=== PATIENT | male | born 1950 | race Caucasian/White ===

== ENCOUNTER → 2016-05-25 | Outpatient (CLI) | payer BC | LOC: MW.CHUR 08:56 | PROVIDERS: ATTEND Urology | DX: R97.20 Elevated prostate specific antigen [PSA] (principal); N42.9 Disorder of prostate, unspecified | CPT/HCPCS: 36415; 84153 ==

== ENCOUNTER 2016-11-04 08:25 | Day surgery (SDC) | payer BC ==
[~2016-11-04 08:25] MED LIST: Lactated Ringers 1,000 ML IV SCH
--- NOTE | 2016-11-04 08:55 | PCM.PREANE ---
Preanesthetic Assessment - Anesthesia/Transfusion/Family Hx Anesthesia History: Prior Anesthesia Without Reaction Family History of Anesthesia Reaction: No Transfusion History: No Prior Transfusion(s) - Review of Systems General: No Symptoms Cardiovascular: No Symptoms Neurological: No Symptoms Other: Reports: None - Physical Assessment NPO Status Date: 11/03/16 O2 Sat by Pulse Oximetry: 96 Respiratory Rate: 16 Vital Signs: Last Vital Signs Temp 36.3 C 11/04/16 08:34 Pulse 78 11/04/16 08:34 Resp 16 11/04/16 08:34 BP 138/88 11/04/16 08:34 Pulse Ox 96 11/04/16 08:34 Height: 1.78 m Weight: 83.915 kg ASA Class: 2 Mental Status: Alert & Oriented x3 Airway Class: Mallampati = 2 Dentition: Reports: Normal Dentition ROM/Head Extension: Full Lungs: Clear to Auscultation, Normal Respiratory Effort Cardiovascular: Regular Rate, Regular Rhythm - Allergies Allergies/Adverse Reactions: Allergies Allergy/AdvReac Type Severity Reaction Status Date / Time mold Allergy "makes me Uncoded 11/02/16 08:52 sick" - Acknowledgements Anesthesia Type Planned: MAC Pt an Appropriate Candidate for the Planned Anesthesia: Yes Alternatives and Risks of Anesthesia Discussed w Pt/Guardian: Yes Pt/Guardian Understands and Agrees with Anesthesia Plan: Yes Additional Comments: PMH: chronic neck and low back pain, thyroid replacement, anxiety, GERD, BPH. Pt denies RAD. PreAnesthesia Questionnaire Cardiovascular History: Gastrointestinal History: Reports: GERD Other Gastrointestinal History: hx gastric ulcer Genitourinary History: Reports: BPH Musculoskeletal History: Reports: Back Pain, Chronic, Osteoarthritis Psychiatric History: Reports: Anxiety Endocrine/Metabolic History: Reports: Hypothyroidism Hematologic History: Reports: Blood Transfusion(s) Other Hematologic History: was told he had a transfusion at 2 yr of age - Past Surgical History Head Surgeries/Procedures: Reports: None GI Surgical History: Reports: Colonoscopy - SUBSTANCE USE Smoking Status *Q: Former Smoker Days Per Week of Alcohol Use: 7 Number of Drinks Per Day: 1 Total Drinks Per Week: 7 Recreational Drug Use History: No - HOME MEDS Home Medications: Home Meds Cholecalciferol (Vitamin D3) [Vitamin D3] 1,000 units PO DAILY 11/02/16 [History ] Doxazosin Mesylate [Cardura] 4 mg PO BEDTIME 11/02/16 [History] LORazepam 0.5 mg PO BID PRN 11/02/16 [History] Lactobacillus Combination No.4 [Probiotic] 1 tab PO DAILY 11/02/16 [History] Levothyroxine Sodium [Synthroid] 100 mcg PO BEDTIME 11/02/16 [History] Lutein 20 mg PO ASDIRECTED 11/02/16 [History] Lysine HCl [l-Lysine] 1 tab PO ASDIRECTED 11/02/16 [History] Multivit-Min/FA/Lycopene/Lut [Centrum Silver Tablet] 1 tab PO DAILY 11/02/16 [ History] Naproxen Sodium [Aleve] 2 - 3 tab PO ASDIRECTED PRN 11/02/16 [History] Omeprazole Magnesium [Prilosec Otc] 20 mg PO DAILY PRN 11/02/16 [History] Testosterone [Androgel] 2 pump TOP DAILY 11/02/16 [History] - CURRENT (IN HOUSE) MEDS Current Meds: Current Medications Lactated Ringer's (Ringers, Lactated) 1,000 mls @ 125 mls/hr IV ASDIRECTED REPLACED BY [facility] Last Admin: 11/04/16 08:40 Dose: 125 mls/hr
[2016-11-04] MEDS ORDERED: Ondansetron 4 MG/2 ML SDV ONE (09:32)
[2016-11-04] MEDS ORDERED: Propofol 200 MG/20 ML SDV ONE (09:32)
[2016-11-04] MEDS ORDERED: fentaNYL 100 MCG/2 ML SDV ONE (09:33)
[2016-11-04] MEDS ORDERED: Midazolam 1 MG/ML 2 ML SDV ONE (09:33)
--- NOTE | 2016-11-04 10:13 | PCM.OPNOTE ---
- General Post-Op/Procedure Note Date of Surgery/Procedure: 11/04/16 Operative Procedure(s): Colonoscopy Pre Op Diagnosis: Change in bowel habits Post-Op Diagnosis: No evidence of neoplasia Anesthesia Technique: MAC (ASA II) Primary Surgeon: Lenard Dumont Disaster Recovery Consultant: Yisel Marquez Condition: Good Free Text/Narrative:: Dictation [id number] CPT CODE 52020
[2016-11-04] MEDS ORDERED: Lactated Ringers 1,000 ML IV SCH (10:15)
--- NOTE | 2016-11-04 10:42 | PCM.POSTAN ---
POST ANESTHESIA ASSESSMENT - MENTAL STATUS Mental Status: Alert, Oriented - RESPIRATORY Respiratory Status: Respiratory Rate WNL, Airway Patent, O2 Saturation Stable - CARDIOVASCULAR CV Status: Pulse Rate WNL, Blood Pressure Stable - GASTROINTESTINAL GI Status: No Symptoms - POST OP HYDRATION Hydration Status: Adequate & Stable
--- NOTE | 2016-11-04 10:43 | PCM48HPAN ---
Post Anesthesia Note - EVALUATION WITHIN 48HRS OF ANESTHETIC Vital Signs in Normal Range: Yes Patient Participated in Evaluation: Yes Respiratory Function Stable: Yes Airway Patent: Yes Cardiovascular Function Stable: Yes Hydration Status Stable: Yes Pain Control Satisfactory: Yes Nausea and Vomiting Control Satisfactory: Yes Mental Status Recovered: Yes
[2016-11-04 10:44] VITALS: BP 99/72
--- NOTE | 2016-11-04 12:35 | OR ---
SURGEON: Lenard Dumont M.D. DATE OF PROCEDURE: 11/04/2016 OPERATION PERFORMED: Colonoscopy. ANESTHESIA: MAC. ASA CLASSIFICATION: II. PREOPERATIVE DIAGNOSIS: Change in bowel habits. POSTOPERATIVE DIAGNOSIS: No evidence of neoplasia. DESCRIPTION OF PROCEDURE: The patient was taken to the endoscopy room, positioned on the endoscopy table in the left lateral decubitus position. Time-out was called for appropriate identification of patient and procedure. Monitored anesthesia care was provided. The colonoscope was inserted into the rectum and advanced without difficulty to the cecum where the colonoscope was retroflexed to visualize the ascending colon from below. The colonoscope was then straightened and slowly withdrawn. The cecum, ascending colon, hepatic flexure, transverse colon, splenic flexure, descending colon, sigmoid colon, and rectum were very well visualized. No tumors, polyps, diverticula, or angiodysplastic changes were noted. The colonoscope was withdrawn to the rectum and retroflexed to visualize the anal orifice from above. No tumors, polyps, or acute hemorrhoidal changes were noted. The colonoscope was then straightened, the rectum aspirated, and the colonoscope removed. The patient tolerated the procedure well and was taken to recovery room in stable condition. JERRELL AUGUSTIN /[id number]
== END 2016-11-04 10:53 | disposition home or self-care (01) ==
LOC: MW.SDS 08:25
PROVIDERS: ATTEND Surgery
DX: R19.4 Change in bowel habit (principal); F41.9 Anxiety disorder, unspecified; K21.9 Gastro-esophageal reflux disease without esophagitis; N40.0 Benign prostatic hyperplasia without lower urinary tract symptoms; E03.9 Hypothyroidism, unspecified; Z91.09 Other allergy status, other than to drugs and biological substances; Z98.890 Other specified postprocedural states; Z87.891 Personal history of nicotine dependence; Z79.899 Other long term (current) drug therapy
CPT/HCPCS: 45378; J2250; J2405; J3010; J7120; 00810; J2704

== ENCOUNTER 2017-01-10 08:20 | Inpatient (IN) | payer BC ==
[2017-01-09 14:13] LABS: CHLORIDE,CL 110 mmol/L (98-110); SODIUM,NA 142 mmol/L (136-146)
[~2017-01-10 08:20] MED LIST changes: +Gentamicin 40 MG/ML 2 ML Vial ONE; -Lactated Ringers 1,000 ML IV SCH; +Lidocaine 2% 5 ML SDV ONE; +Midazolam 1 MG/ML 2 ML SDV ONE; +Neostigmine Methylsulfate 1 MG/ML 5 ML Syringe ONE; +Ondansetron 4 MG/2 ML SDV ONE; +Propofol 200 MG/20 ML SDV ONE; +Sodium Chloride 0.9% 10 ML Syringe FLUSH PRN; +Sodium Chloride 0.9% 2.5 ML Syringe FLUSH PRN; +Sodium Chloride 0.9% 20 ML ONE; +ceFAZolin 1 GM in Premix Bag 1 BAG IV ONE; +fentaNYL 250 MCG/5 ML SDV ONE
[2017-01-10] MEDS: Lactated Ringers 1,000 ML IV SCH ×2 (09:15→23:16)
[2017-01-10] MEDS ORDERED: Morphine PF 10 MG/10 ML SDV ONE (09:23)
--- NOTE | 2017-01-10 09:26 | PCM.PREANE ---
Preanesthetic Assessment - Anesthesia/Transfusion/Family Hx Anesthesia History: Prior Anesthesia Without Reaction Family History of Anesthesia Reaction: No Transfusion History: Prior Transfusion Without Reaction - Review of Systems General: No Symptoms Pulmonary: No Symptoms Cardiovascular: No Symptoms Gastrointestinal: No Symptoms Neurological: No Symptoms Other: Reports: None - Physical Assessment NPO Status Date: 12/19/16 Height: 1.78 m Weight: 84.368 kg ASA Class: 2 Mental Status: Alert & Oriented x3 Airway Class: Mallampati = 2 Dentition: Reports: Normal Dentition ROM/Head Extension: Full Lungs: Clear to Auscultation, Normal Respiratory Effort Cardiovascular: Regular Rate, Regular Rhythm - Lab Values: Laboratory Last Values WBC 6.97 K/uL (4.0-11.0) 01/09/17 13:49 RBC 4.71 M/uL (4.50-5.90) 01/09/17 13:49 Hgb 13.8 g/dL (13.0-17.0) 01/09/17 13:49 Hct 40.6 % (38.0-50.0) 01/09/17 13:49 MCV 86.2 fL (80.0-98.0) 01/09/17 13:49 MCH 29.3 pg (27.0-32.0) 01/09/17 13:49 MCHC 34.0 g/dL (31.0-37.0) 01/09/17 13:49 RDW Std Deviation 44.4 fl (28.0-62.0) 01/09/17 13:49 RDW Coeff of Cecilio 14 % (11.0-15.0) 01/09/17 13:49 Plt Count 271 K/uL (150-400) 01/09/17 13:49 MPV 9.90 fL (7.40-12.00) 01/09/17 13:49 Neut % (Auto) 58.1 % (48.0-80.0) 01/09/17 13:49 Lymph % (Auto) 31.1 % (16.0-40.0) 01/09/17 13:49 [place] % (Auto) 7.5 % (0.0-15.0) 01/09/17 13:49 Eos % (Auto) 2.4 % (0.0-7.0) 01/09/17 13:49 Baso % (Auto) 0.9 % (0.0-1.5) 01/09/17 13:49 Neut # (Auto) 4.1 K/uL (1.4-5.7) 01/09/17 13:49 Lymph # (Auto) 2.2 K/uL (0.6-2.4) 01/09/17 13:49 [place] # (Auto) 0.5 K/uL (0.0-0.8) 01/09/17 13:49 Eos # (Auto) 0.2 K/uL (0.0-0.7) 01/09/17 13:49 Baso # (Auto) 0.1 K/uL (0.0-0.1) 01/09/17 13:49 Nucleated RBC % 0.0 /100WBC 01/09/17 13:49 Nucleated RBCs # 0 K/uL 01/09/17 13:49 Sodium 142 mmol/L (136-146) 01/09/17 13:49 Potassium 3.7 mmol/L (3.5-5.1) 01/09/17 13:49 Chloride 110 mmol/L (98-110) 01/09/17 13:49 Carbon Dioxide 22 mmol/L (21-31) 01/09/17 13:49 BUN 19 mg/dL (6.0-23.0) 01/09/17 13:49 Creatinine 1.1 mg/dL (0.6-1.5) 01/09/17 13:49 Est Cr Clr Drug Dosing 69.13 mL/min 01/09/17 13:49 Estimated GFR (MDRD) > 60.0 ml/min 01/09/17 13:49 Glucose 116 mg/dL (60-110) H 01/09/17 13:49 Calcium 8.8 mg/dL (8.8-10.8) 01/09/17 13:49 Blood Type A POSITIVE 01/09/17 13:49 Antibody Screen NEGATIVE 01/09/17 13:49 Crossmatch See Detail 01/09/17 13:49 - Allergies Allergies/Adverse Reactions: Allergies Allergy/AdvReac Type Severity Reaction Status Date / Time mold Allergy "makes me Uncoded 11/02/16 08:52 sick" - Anesthesia Plan Pre-Op Medication Ordered: None - Acknowledgements Anesthesia Type Planned: General Anesthesia, Spinal (PMH: chronic cough, thyroid replacement, anxiety, gerd, PLAN: GET with intrathecal duramorph for post op pain management.) Pt an Appropriate Candidate for the Planned Anesthesia: Yes Alternatives and Risks of Anesthesia Discussed w Pt/Guardian: Yes Pt/Guardian Understands and Agrees with Anesthesia Plan: Yes PreAnesthesia Questionnaire Cardiovascular History: Reports: None Gastrointestinal History: Reports: GERD Other Gastrointestinal History: hx gastric ulcer Genitourinary History: Reports: BPH Musculoskeletal History: Reports: Back Pain, Chronic, Neck Pain, Chronic, Osteoarthritis Psychiatric History: Reports: Anxiety Endocrine/Metabolic History: Reports: Hypothyroidism Hematologic History: Reports: Blood Transfusion(s) Other Hematologic History: was told he had a transfusion at 2 yr of age - Past Surgical History Head Surgeries/Procedures: Reports: None GI Surgical History: Reports: Colonoscopy - SUBSTANCE USE Smoking Status *Q: Former Smoker Days Per Week of Alcohol Use: 7 Number of Drinks Per Day: 1 Total Drinks Per Week: 7 Recreational Drug Use History: No - HOME MEDS Home Medications: Home Meds Cholecalciferol (Vitamin D3) [Vitamin D3] 1,000 units PO DAILY 11/02/16 [History ] Doxazosin Mesylate [Cardura] 4 mg PO BEDTIME 11/02/16 [History] LORazepam 0.5 mg PO BID PRN 11/02/16 [History] Lactobacillus Combination No.4 [Probiotic] 1 tab PO DAILY 11/02/16 [History] Levothyroxine Sodium [Synthroid] 100 mcg PO BEDTIME 11/02/16 [History] Lutein 20 mg PO ASDIRECTED 11/02/16 [History] Lysine HCl [l-Lysine] 1 tab PO ASDIRECTED 11/02/16 [History] Multivit-Min/FA/Lycopene/Lut [Centrum Silver Tablet] 1 tab PO DAILY 11/02/16 [ History] Naproxen Sodium [Aleve] 2 - 3 tab PO ASDIRECTED PRN 11/02/16 [History] Omeprazole Magnesium [Prilosec Otc] 20 mg PO DAILY PRN 11/02/16 [History] - CURRENT (IN HOUSE) MEDS Current Meds: Current Medications Lactated Ringer's (Ringers, Lactated) 1,000 mls @ 100 mls/hr IV ASDIRECTED BLAKE Sodium Chloride (Saline Flush) 10 ml FLUSH ASDIRECTED PRN PRN Reason: Keep Vein Open Sodium Chloride (Saline Flush) 2.5 ml FLUSH ASDIRECTED PRN PRN Reason: Keep Vein Open Discontinued Medications Fentanyl (Sublimaze) Confirm Administered Dose 250 mcg .ROUTE .STK-MED ONE Stop: 01/10/17 07:11 Gentamicin Sulfate (Gentamicin) Confirm Administered Dose 80 mg .ROUTE .STK-MED ONE Stop: 01/10/17 07:42 Glycopyrrolate () Confirm Administered Dose 1 mg .ROUTE .STK-MED ONE Stop: 01/10/17 07:11 Cefazolin Sodium/Dextrose 1 gm (/ Premix) 50 mls @ 100 mls/hr IV ONCALL ONE Stop: 01/10/17 07:29 Sodium Chloride (Normal Saline) Confirm Administered Dose 20 mls @ as directed .ROUTE .STK-MED ONE Stop: 01/10/17 07:11 Lidocaine (Xylocaine-Mpf 2%) Confirm Administered Dose 5 ml .ROUTE .STK-MED ONE Stop: 01/10/17 07:11 Midazolam HCl (Versed 1 Mg/Ml) Confirm Administered Dose 2 mg .ROUTE .STK-MED ONE Stop: 01/10/17 07:11 Neostigmine Methylsulfate (Neostigmine) Confirm Administered Dose 5 mg .ROUTE .STK-MED ONE Stop: 01/10/17 07:11 Ondansetron HCl (Zofran) Confirm Administered Dose 4 mg .ROUTE .STK-MED ONE Stop: 01/10/17 07:11 Propofol (Diprivan 20 Ml) Confirm Administered Dose 200 mg .ROUTE .STK-MED ONE Stop: 01/10/17 07:11 Vecuronium [place] (Vecuronium) Confirm Administered Dose 10 mg .ROUTE .STK-MED ONE Stop: 01/10/17 07:11
[2017-01-10] MEDS ORDERED: Sodium Chloride 0.9% 20 ML ONE (11:02)
[2017-01-10] MEDS ORDERED: ceFAZolin 1 GM Vial ONE (11:02)
[2017-01-10] MEDS ORDERED: ePHEDrine 50 MG/ML SDV ONE (11:08)
[2017-01-10] MEDS ORDERED: Phenylephrine 1% 10 MG/ML SDV ONE ×3 (11:23→13:36)
[2017-01-10] MEDS ORDERED: HYDROmorphone 2 MG/ML Syringe ONE (13:07)
[2017-01-10] MEDS ORDERED: ceFAZolin 1 GM in Premix Bag 1 BAG IV SCH (14:45)
[2017-01-10] MEDS ORDERED: Albumin 5% 250 ML IV SCH (14:45)
[2017-01-10 17:21] LABS: CHLORIDE,CL 111 mmol/L (98-110); SODIUM,NA 141 mmol/L (136-146)
[2017-01-10] MEDS ORDERED: Morphine PF 30 MG/30 ML PCA Vial IV SCH (18:00)
[2017-01-10] MEDS: ceFAZolin 1 GM in Premix Bag 1 BAG IV SCH (18:43)
[2017-01-10] MEDS: Ondansetron 4 MG/2 ML SDV IVPUSH PRN (18:44)
[2017-01-10] MEDS ORDERED: Albumin 5% 250 ML IV ONE (21:00)
--- NOTE | 2017-01-10 22:03 | OR ---
SURGEON: Luis Angel Carmona M.D. DATE OF PROCEDURE: 01/10/2017 PREOPERATIVE DIAGNOSIS: Adenocarcinoma of the prostate. POSTOPERATIVE DIAGNOSIS: Adenocarcinoma of the prostate. OPERATION: Radical retropubic prostatectomy. MATERIALS AND CORROSION ENGINEER: licensed sales assistant: Dr. Dumont. Second hr administrative assistant: Dr. Polo Lopez. ESTIMATED BLOOD LOSS: 500 mL. DESCRIPTION OF THE PROCEDURE: The patient was placed in the supine position. He has already received his spinal for Duramorph. He was then prepped and draped in sterile drapes under general anesthesia. The table was flexed by 15 degrees. A catheter was placed in the bladder. A lower midline incision made and carried through the fascia. The retropubic space on both sides of the bladder was exposed. The obturator lymph nodes were removed on both sides. The endopelvic fascia was incised. Puboprostatic ligaments were taken down. The venous plexus in front of the membranous urethra was ligated with #1 chromic. The dissection was continued the apex of the prostate from the membranous urethra. Distal margin for frozen was negative. The dissection was continued the prostate from the anterior wall of the rectum and then onto the side taking down the blood supply to the prostate. The neurovascular bundle is preserved on both sides. The dissection was continued to include the seminal vesicles, vas deferens transected and occluded on the right side. The same was done on the left side. The proximal dissection was carried out the prostate from the neck of the bladder. Anastomosis was completed between the membranous urethra and the bladder neck using a 2-0 chromic sutures at the 6, 8, 10, 4, 2 and 12 o'clock positions, that anastomosis was watertight. Two large Angie drains were left in and brought to the outside on both sides of the main incision. The fascia was closed with a running suture of #2 nylon. Subcutaneous tissues reapproximated with 3-0 chromic. Skin was closed with chavez. Drains were secured in place with 2-0 silk. The patient tolerated the procedure well and was moved to recovery room in good condition. PRIMARY SURGEON: SECONDARY SURGEON: REASON MATERIALS AND CORROSION ENGINEER WAS NECESSARY: ROLE OF MATERIALS AND CORROSION ENGINEER: ROXANA / CHARLI /[id number]
[2017-01-11] MEDS: ceFAZolin 1 GM in Premix Bag 1 BAG IV SCH (03:28)
[2017-01-11] MEDS ORDERED: diphenhydrAMINE 50 MG/ML SDV IVPUSH ONE (03:29)
[2017-01-11] MEDS: Ciprofloxacin in D5W 400 MG in Premix Bag 1 BAG IV SCH ×4 (03:53→15:32)
[2017-01-11] MEDS: Meperidine PF 25 MG/ML Syringe IVPUSH PRN ×2 (05:01→17:03)
[2017-01-11] MEDS: Ondansetron 4 MG/2 ML SDV IVPUSH PRN ×3 (05:11→16:47)
[2017-01-11 05:45] LABS: CHLORIDE,CL 108 mmol/L (98-110); SODIUM,NA 139 mmol/L (136-146)
[2017-01-11] MEDS: Acetaminophen/HYDROcodone 325-5 MG Tab PO PRN ×3 (07:21→15:34)
[2017-01-11] MEDS ORDERED: diphenhydrAMINE 50 MG/ML SDV IVPUSH PRN ×2 (07:51→07:54)
[2017-01-11] MEDS ORDERED: Naloxone 0.4 MG/ML Syringe IVPUSH PRN (07:54)
[2017-01-11] MEDS ORDERED: Nalbuphine 10 MG/1 ML Vial IVPUSH PRN (07:54)
--- NOTE | 2017-01-11 07:57 | PCM.SURGPN ---
- General Info Date of Service: 01/11/17 Date of Surgery/Procedure: 01/10/17 POD#: 1 Post-Op Diagnosis: Status post radical prostatectomy for prostate cancer. Functional Status: Reports: Pain Controlled (Appropriate post-operative pain) - Review of Systems General: Reports: Other (Itching). Denies: Fever, Chills Pulmonary: Reports: Other (On supplemental O2 1 L/NC). Denies: Shortness of Breath, Cough Cardiovascular: Denies: Chest Pain, Palpitations Gastrointestinal: Reports: Abdominal Pain (Appropraite for post-operative pain) , Decreased Appetite, Nausea, Vomiting Genitourinary: Reports: Other (Sensation of bladder distension with kennedy) Musculoskeletal: Reports: No Symptoms. Denies: Neck Pain, Shoulder Pain, Arm Pain, Hand Pain Skin: Reports: Pruritis Neurological: Denies: Confusion, Dizziness Psychiatric: Denies: Confusion, Depression - Patient Data Vitals - Most Recent: Last Vital Signs Temp 37.1 C 01/11/17 04:00 Pulse 85 01/10/17 19:00 Resp 15 01/11/17 06:00 BP 98/55 L 01/11/17 06:00 Pulse Ox 93 L 01/11/17 06:00 Weight - Most Recent: 85.6 kg I&O - Last 24 Hours: Intake & Output 01/10/17 01/11/17 01/11/17 22:59 06:59 14:59 Intake Total 6450 1709 Output Total 870 1700 Balance 5580 9 Lab Results Last 24 Hrs: Laboratory Results - last 24 hr 01/09/17 01/10/17 01/10/17 Range/Units 13:49 16:45 16:45 WBC 15.82 H (4.0-11.0) K/uL RBC 4.18 L (4.50-5.90) M/uL Hgb 12.1 L (13.0-17.0) g/dL Hct 36.6 L (38.0-50.0) % MCV 87.6 (80.0-98.0) fL MCH 28.9 (27.0-32.0) pg MCHC 33.1 (31.0-37.0) g/dL RDW Std Deviation 45.1 (28.0-62.0) fl RDW Coeff of Cecilio 14 (11.0-15.0) % Plt Count 153 (150-400) K/uL MPV 10.00 (7.40-12.00) fL Neut % (Auto) 81.7 H (48.0-80.0) % Lymph % (Auto) 10.4 L (16.0-40.0) % [place] % (Auto) 7.3 (0.0-15.0) % Eos % (Auto) 0.3 (0.0-7.0) % Baso % (Auto) 0.3 (0.0-1.5) % Neut # (Auto) 12.9 H (1.4-5.7) K/uL Lymph # (Auto) 1.6 (0.6-2.4) K/uL [place] # (Auto) 1.2 H (0.0-0.8) K/uL Eos # (Auto) 0.1 (0.0-0.7) K/uL Baso # (Auto) 0.0 (0.0-0.1) K/uL Nucleated RBC % 0.0 /100WBC Nucleated RBCs # 0 K/uL Sodium 141 (136-146) mmol/L Potassium 4.3 (3.5-5.1) mmol/L Chloride 111 H (98-110) mmol/L Carbon Dioxide 25 (21-31) mmol/L BUN 13 (6.0-23.0) mg/dL Creatinine 0.8 (0.6-1.5) mg/dL Est Cr Clr Drug Dosing 95.05 mL/min Estimated GFR (MDRD) > 60.0 ml/min Glucose 122 H (60-110) mg/dL Calcium 7.9 L (8.8-10.8) mg/dL Blood Type A POSITIVE Antibody Screen NEGATIVE Crossmatch See Detail 01/11/17 01/11/17 Range/Units 05:04 05:04 WBC 12.18 H (4.0-11.0) K/uL RBC 3.58 L (4.50-5.90) M/uL Hgb 10.4 L (13.0-17.0) g/dL Hct 31.2 L (38.0-50.0) % MCV 87.2 (80.0-98.0) fL MCH 29.1 (27.0-32.0) pg MCHC 33.3 (31.0-37.0) g/dL RDW Std Deviation 45.2 (28.0-62.0) fl RDW Coeff of Cecilio 14 (11.0-15.0) % Plt Count 208 (150-400) K/uL MPV 10.30 (7.40-12.00) fL Neut % (Auto) 80.9 H (48.0-80.0) % Lymph % (Auto) 10.3 L (16.0-40.0) % [place] % (Auto) 8.6 (0.0-15.0) % Eos % (Auto) 0.1 (0.0-7.0) % Baso % (Auto) 0.1 (0.0-1.5) % Neut # (Auto) 9.9 H (1.4-5.7) K/uL Lymph # (Auto) 1.3 (0.6-2.4) K/uL [place] # (Auto) 1.1 H (0.0-0.8) K/uL Eos # (Auto) 0.0 (0.0-0.7) K/uL Baso # (Auto) 0.0 (0.0-0.1) K/uL Nucleated RBC % 0.0 /100WBC Nucleated RBCs # 0 K/uL Sodium 139 (136-146) mmol/L Potassium 4.1 (3.5-5.1) mmol/L Chloride 108 (98-110) mmol/L Carbon Dioxide 24 (21-31) mmol/L BUN 14 (6.0-23.0) mg/dL Creatinine 0.9 (0.6-1.5) mg/dL Est Cr Clr Drug Dosing 84.49 mL/min Estimated GFR (MDRD) > 60.0 ml/min Glucose 133 H (60-110) mg/dL Calcium 8.1 L (8.8-10.8) mg/dL Blood Type Antibody Screen Crossmatch Med Orders - Current: Current Medications Hydrocodone Bitart/Acetaminophen ([place] 325-5 Mg) 1 tab PO Q4H PRN PRN Reason: Pain Last Admin: 01/11/17 07:21 Dose: 1 tab Enoxaparin Sodium (Lovenox) 40 mg SUBCUT DAILY [facility] Lactated Ringer's (Ringers, Lactated) 1,000 mls @ 125 mls/hr IV ASDIRECTED [facility] Last Admin: 01/10/17 23:16 Dose: 125 mls/hr Ciprofloxacin/Dextrose 400 mg/ (Premix) 200 mls @ 200 mls/hr IV Q12H [facility] Last Admin: 01/11/17 03:53 Dose: 200 mls/hr Meperidine HCl (Demerol) 25 mg IVPUSH Q3H PRN PRN Reason: Pain Last Admin: 01/11/17 05:01 Dose: 25 mg Ondansetron HCl (Zofran) 4 mg IVPUSH Q3H PRN PRN Reason: Nausea/Vomiting Last Admin: 01/11/17 05:11 Dose: 4 mg Sodium Chloride (Saline Flush) 10 ml FLUSH ASDIRECTED PRN PRN Reason: Keep Vein Open Sodium Chloride (Saline Flush) 2.5 ml FLUSH ASDIRECTED PRN PRN Reason: Keep Vein Open Discontinued Medications Cefazolin Sodium (Ancef) Confirm Administered Dose 2 gm .ROUTE .STK-MED ONE Stop: 01/10/17 11:03 Diphenhydramine HCl (Benadryl) 25 mg IVPUSH ONETIME ONE Stop: 01/11/17 03:30 Last Admin: 01/11/17 03:48 Dose: 25 mg Ephedrine Sulfate (Ephedrine Sulfate) Confirm Administered Dose 50 mg .ROUTE .STK-MED ONE Stop: 01/10/17 11:09 Fentanyl (Sublimaze) Confirm Administered Dose 250 mcg .ROUTE .STK-MED ONE Stop: 01/10/17 07:11 Gentamicin Sulfate (Gentamicin) Confirm Administered Dose 80 mg .ROUTE .STK-MED ONE Stop: 01/10/17 07:42 Glycopyrrolate () Confirm Administered Dose 1 mg .ROUTE .STK-MED ONE Stop: 01/10/17 07:11 Hydromorphone HCl (Dilaudid) Confirm Administered Dose 2 mg .ROUTE .STK-MED ONE Stop: 01/10/17 13:08 Cefazolin Sodium/Dextrose 1 gm (/ Premix) 50 mls @ 100 mls/hr IV ONCALL ONE Stop: 01/10/17 07:29 Last Admin: 01/10/17 15:31 Dose: Not Given Sodium Chloride (Normal Saline) Confirm Administered Dose 20 mls @ as directed .ROUTE .STK-MED ONE Stop: 01/10/17 07:11 Sodium Chloride (Normal Saline) Confirm Administered Dose 20 mls @ as directed .ROUTE .STK-MED ONE Stop: 01/10/17 11:03 Albumin Human (Buminate 5%) 250 mls @ 50 mls/hr IV ASDIRECTED [facility] Stop: 01/11/17 00:46 Last Admin: 01/10/17 15:31 Dose: 50 mls/hr Cefazolin Sodium/Dextrose 1 gm (/ Premix) 50 mls @ 100 mls/hr IV Q8H [facility] Last Admin: 01/11/17 03:28 Dose: Not Given Albumin Human (Buminate 5%) 250 mls @ 50 mls/hr IV ONETIME ONE Stop: 01/11/17 01:59 Last Admin: 01/10/17 20:20 Dose: 50 mls/hr Lidocaine (Xylocaine-Mpf 2%) Confirm Administered Dose 5 ml .ROUTE .ST-MED ONE Stop: 01/10/17 07:11 Midazolam HCl (Versed 1 Mg/Ml) Confirm Administered Dose 2 mg .ROUTE .STK-MED ONE Stop: 01/10/17 07:11 Morphine Sulfate (Duramorph Pf) Confirm Administered Dose 10 mg .ROUTE .ST-MED ONE Stop: 01/10/17 09:24 Morphine Sulfate (Morphine Continuous [place] Pick[place] 30 Mg In 30 Ml) 30 mg IV ASDIRECTED [facility] PRN Reason: Protocol Last Admin: 01/10/17 18:45 Dose: 30 mg Neostigmine Methylsulfate (Neostigmine) Confirm Administered Dose 5 mg .ROUTE .ST-MED ONE Stop: 01/10/17 07:11 Ondansetron HCl (Zofran) Confirm Administered Dose 4 mg .ROUTE .STK-MED ONE Stop: 01/10/17 07:11 Phenylephrine HCl ([place]-Synephrine) Confirm Administered Dose 10 mg .ROUTE .STK- MED ONE Stop: 01/10/17 11:24 Phenylephrine HCl ([place]-Synephrine) Confirm Administered Dose 10 mg .ROUTE .STK- MED ONE Stop: 01/10/17 12:16 Phenylephrine HCl ([place]-Synephrine) Confirm Administered Dose 10 mg .ROUTE .STK- MED ONE Stop: 01/10/17 13:37 Propofol (Diprivan 20 Ml) Confirm Administered Dose 200 mg .ROUTE .STK-MED ONE Stop: 01/10/17 07:11 Vecuronium [place] (Vecuronium) Confirm Administered Dose 10 mg .ROUTE .STK-MED ONE Stop: 01/10/17 07:11 - Exam Wound/Incisions: Dressing Dry and Intact, Other (Drains with serosanguinous output to bandages) Quality Assessment: Supplemental Oxygen (Nasal cannula), Urine Catheter, DVT Prophylaxis General: Alert, Oriented, Cooperative, No Acute Distress HEENT: Pupils Equal, EOMI Neck: Supple, Trachea Midline Lungs: Clear to Auscultation, Normal Respiratory Effort Cardiovascular: Regular Rate, Regular Rhythm GI/Abdominal Exam: Soft, Tender (Appropraitely tender), Other (Outer dressing C/ D/I, inner dressing with serosanguinous drainage to sujit drains) Extremities: Normal Inspection, Non-Tender, No Pedal Edema (per report, previous edematous, no edema at this time) Skin: Warm, Dry Neurological: Normal Speech, Normal Tone Psy/Mental Status: Alert, Normal Affect, Normal Mood - Problem List Review Problem List Initiated/Reviewed/Updated: Yes - My Orders Last 24 Hours: Active Orders 24 hr Category Date Time Status Patient Status [ADT] Routine ADT 01/10/17 07:00 Active Intake and Output [RC] Q12H Care 01/10/17 14:39 Active Oxygen Therapy Adult [Oxygen Therapy] [RC] ASDIRECTED Care 01/11/17 07:16 Active Peripheral IV Care [RC] . DIRECTED Care 01/10/17 07:00 Active Up ad Jamila [RC] ASDIRECTED Care 01/10/17 07:00 Active Vital Signs [RC] Q1H Care 01/10/17 07:00 Active Clear Liquid Diet [DIET] Diet 01/10/17 Dinner Active Acetaminophen/HYDROcodone [[place] 325-5 MG] Med 01/11/17 06:41 Active 1 tab PO Q4H PRN Ciprofloxacin in D5W [Cipro in D5W 400 MG/200 ML] 400 Med 01/11/17 04:00 Active mg Premix Bag 1 bag IV Q12H Enoxaparin [Lovenox] Med 01/11/17 09:00 Active 40 mg SUBCUT DAILY Lactated Ringers [Ringers, Lactated] 1,000 ml Med 01/10/17 07:00 Active IV ASDIRECTED Meperidine [Demerol] Med 01/11/17 04:11 Active 25 mg IVPUSH Q3H PRN Ondansetron [Zofran] Med 01/10/17 18:35 Active 4 mg IVPUSH Q3H PRN Sodium Chloride 0.9% [Saline Flush] Med 01/10/17 07:00 Active 10 ml FLUSH ASDIRECTED PRN Sodium Chloride 0.9% [Saline Flush] Med 01/10/17 07:00 Active 2.5 ml FLUSH ASDIRECTED PRN diphenhydrAMINE [Benadryl] Med 01/11/17 07:51 Ordered 25 mg IVPUSH Q4H PRN Nothing Per Rectum [WOMSER] Routine Oth 01/10/17 14:39 Ordered Peripheral IV Insertion Adult [OM.PC] Routine Oth 01/10/17 07:00 Ordered Transfuse Red Blood Cells [COMM] Stat Oth 01/10/17 13:30 Ordered Medication Orders Hydrocodone Bitart/Acetaminophen ([place] 325-5 Mg) 1 tab PO Q4H PRN PRN Reason: Pain Last Admin: 01/11/17 07:21 Dose: 1 tab Enoxaparin Sodium (Lovenox) 40 mg SUBCUT DAILY [facility] Lactated Ringer's (Ringers, Lactated) 1,000 mls @ 125 mls/hr IV ASDIRECTED [facility] Last Admin: 01/10/17 23:16 Dose: 125 mls/hr Infusion: 01/10/17 18:32 Dose: 125 mls/hr Infusion: 01/10/17 15:35 Dose: 125 mls/hr Admin: 01/10/17 09:15 Dose: 100 mls/hr Ciprofloxacin/Dextrose 400 mg/ (Premix) 200 mls @ 200 mls/hr IV Q12H [facility] Last Admin: 01/11/17 03:53 Dose: 200 mls/hr Meperidine HCl (Demerol) 25 mg IVPUSH Q3H PRN PRN Reason: Pain Last Admin: 01/11/17 05:01 Dose: 25 mg Ondansetron HCl (Zofran) 4 mg IVPUSH Q3H PRN PRN Reason: Nausea/Vomiting Last Admin: 11/29/17 05:11 Dose: 4 mg Admin: 01/10/17 18:44 Dose: 4 mg Sodium Chloride (Saline Flush) 10 ml FLUSH ASDIRECTED PRN PRN Reason: Keep Vein Open Sodium Chloride (Saline Flush) 2.5 ml FLUSH ASDIRECTED PRN PRN Reason: Keep Vein Open - Assessment Assessment (Free Text/Narrative):: Mr. Jauregui is POD 1 radical prostatectomy, overnight suffered from nausea with emesis, lower end of normal blood pressure, itching. Pain regimen adjusted from morphine to Demerol, patient continues to have itching. Discussed the skin prep and many medications can cause this and will prescribe Benadryl. Patient denies chest pain with discontinuation of albumin, shortness of breath with weaning of supplemental oxygen, receiving zofran for nausea and has yet to tolerate a diet, denies fevers or chills, has not passed flatus but does feel the need to, has yet to ambulate, good urine output. - Plan Plan (Free Text/Narrative):: Neuro: continue current pain regimen, will start PRN Benadryl for itching Hemodynamics: continue LR 125 cc/hr Hematology: Hgb decreased from 12 to 10 as expected, continue to monitor, platelets within normal limits Pulm: continue to wean supplemental O2 as tolerated, vigorous incentive spirometer use GI: continue clear liquid diet as tolerated, PRN zofran, dressing to be changed with Dr. Carmona : kennedy to remain in place x2 weeks ID: continue current antibiotic regimen as patient has drains and kennedy Activity: begin to mobilize
[2017-01-11] MEDS: Lactated Ringers 1,000 ML IV SCH ×3 (08:39→22:50)
[2017-01-11] MEDS: Enoxaparin 40 MG/0.4 ML Syringe SUBCUT SCH (08:39)
--- NOTE | 2017-01-11 09:56 | PCM.SURGPN ---
- General Info Date of Service: 01/11/17 Date of Surgery/Procedure: 01/11/17 POD#: 1 Functional Status: Reports: Pain Controlled, Ambulating, Incentive Spirometry Pain Score: 4 - Review of Systems General: Reports: No Symptoms HEENT: Reports: No Symptoms Pulmonary: Reports: No Symptoms Cardiovascular: Reports: No Symptoms Gastrointestinal: Reports: No Symptoms Genitourinary: Reports: No Symptoms Skin: Reports: No Symptoms Neurological: Reports: No Symptoms Psychiatric: Reports: No Symptoms - Patient Data Vitals - Most Recent: Last Vital Signs Temp 98.7 F 01/11/17 04:00 Pulse 85 01/10/17 19:00 Resp 15 01/11/17 06:00 BP 98/55 L 01/11/17 06:00 Pulse Ox 93 L 01/11/17 06:00 Weight - Most Recent: 188 lb 11.451 oz I&O - Last 24 Hours: Intake & Output 01/10/17 01/11/17 01/11/17 19:59 03:59 11:59 Intake Total 6200 1409 1549 Output Total 870 1700 Balance 5330 1409 -151 Lab Results Last 24 Hrs: Laboratory Results - last 24 hr 01/09/17 01/10/17 01/10/17 Range/Units 13:49 16:45 16:45 WBC 15.82 H (4.0-11.0) K/uL RBC 4.18 L (4.50-5.90) M/uL Hgb 12.1 L (13.0-17.0) g/dL Hct 36.6 L (38.0-50.0) % MCV 87.6 (80.0-98.0) fL MCH 28.9 (27.0-32.0) pg MCHC 33.1 (31.0-37.0) g/dL RDW Std Deviation 45.1 (28.0-62.0) fl RDW Coeff of Cecilio 14 (11.0-15.0) % Plt Count 153 (150-400) K/uL MPV 10.00 (7.40-12.00) fL Neut % (Auto) 81.7 H (48.0-80.0) % Lymph % (Auto) 10.4 L (16.0-40.0) % [place] % (Auto) 7.3 (0.0-15.0) % Eos % (Auto) 0.3 (0.0-7.0) % Baso % (Auto) 0.3 (0.0-1.5) % Neut # (Auto) 12.9 H (1.4-5.7) K/uL Lymph # (Auto) 1.6 (0.6-2.4) K/uL [place] # (Auto) 1.2 H (0.0-0.8) K/uL Eos # (Auto) 0.1 (0.0-0.7) K/uL Baso # (Auto) 0.0 (0.0-0.1) K/uL Nucleated RBC % 0.0 /100WBC Nucleated RBCs # 0 K/uL Sodium 141 (136-146) mmol/L Potassium 4.3 (3.5-5.1) mmol/L Chloride 111 H (98-110) mmol/L Carbon Dioxide 25 (21-31) mmol/L BUN 13 (6.0-23.0) mg/dL Creatinine 0.8 (0.6-1.5) mg/dL Est Cr Clr Drug Dosing 95.05 mL/min Estimated GFR (MDRD) > 60.0 ml/min Glucose 122 H (60-110) mg/dL Calcium 7.9 L (8.8-10.8) mg/dL Blood Type A POSITIVE Antibody Screen NEGATIVE Crossmatch See Detail 01/11/17 01/11/17 Range/Units 05:04 05:04 WBC 12.18 H (4.0-11.0) K/uL RBC 3.58 L (4.50-5.90) M/uL Hgb 10.4 L (13.0-17.0) g/dL Hct 31.2 L (38.0-50.0) % MCV 87.2 (80.0-98.0) fL MCH 29.1 (27.0-32.0) pg MCHC 33.3 (31.0-37.0) g/dL RDW Std Deviation 45.2 (28.0-62.0) fl RDW Coeff of Cecilio 14 (11.0-15.0) % Plt Count 208 (150-400) K/uL MPV 10.30 (7.40-12.00) fL Neut % (Auto) 80.9 H (48.0-80.0) % Lymph % (Auto) 10.3 L (16.0-40.0) % [place] % (Auto) 8.6 (0.0-15.0) % Eos % (Auto) 0.1 (0.0-7.0) % Baso % (Auto) 0.1 (0.0-1.5) % Neut # (Auto) 9.9 H (1.4-5.7) K/uL Lymph # (Auto) 1.3 (0.6-2.4) K/uL [place] # (Auto) 1.1 H (0.0-0.8) K/uL Eos # (Auto) 0.0 (0.0-0.7) K/uL Baso # (Auto) 0.0 (0.0-0.1) K/uL Nucleated RBC % 0.0 /100WBC Nucleated RBCs # 0 K/uL Sodium 139 (136-146) mmol/L Potassium 4.1 (3.5-5.1) mmol/L Chloride 108 (98-110) mmol/L Carbon Dioxide 24 (21-31) mmol/L BUN 14 (6.0-23.0) mg/dL Creatinine 0.9 (0.6-1.5) mg/dL Est Cr Clr Drug Dosing 84.49 mL/min Estimated GFR (MDRD) > 60.0 ml/min Glucose 133 H (60-110) mg/dL Calcium 8.1 L (8.8-10.8) mg/dL Blood Type Antibody Screen Crossmatch Med Orders - Current: Current Medications Hydrocodone Bitart/Acetaminophen ([place] 325-5 Mg) 1 tab PO Q4H PRN PRN Reason: Pain Last Admin: 01/11/17 07:21 Dose: 1 tab Diphenhydramine HCl (Benadryl) 25 mg IVPUSH Q4H PRN PRN Reason: Itching Diphenhydramine HCl (Benadryl) 25 mg IVPUSH Q4H PRN PRN Reason: Itching Stop: 01/12/17 07:55 Enoxaparin Sodium (Lovenox) 40 mg SUBCUT DAILY [facility] Last Admin: 01/11/17 08:39 Dose: 40 mg Ciprofloxacin/Dextrose 400 mg/ (Premix) 200 mls @ 200 mls/hr IV Q12H [facility] Last Admin: 01/11/17 03:53 Dose: 200 mls/hr Lactated Ringer's (Ringers, Lactated) 1,000 mls @ 150 mls/hr IV ASDIRECTED [facility] Levothyroxine Sodium (Synthroid) 50 mcg IVPUSH DAILY [facility] Meperidine HCl (Demerol) 25 mg IVPUSH Q3H PRN PRN Reason: Pain Last Admin: 01/11/17 05:01 Dose: 25 mg Nalbuphine HCl (Nubain) 5 mg IVPUSH Q3H PRN PRN Reason: Pruritis Stop: 01/12/17 07:55 Naloxone HCl (Narcan) 0.1 mg IVPUSH ONETIME PRN PRN Reason: Respiratory Depression Stop: 01/12/17 07:55 Ondansetron HCl (Zofran) 4 mg IVPUSH Q3H PRN PRN Reason: Nausea/Vomiting Last Admin: 01/11/17 08:30 Dose: 4 mg Sodium Chloride (Saline Flush) 10 ml FLUSH ASDIRECTED PRN PRN Reason: Keep Vein Open Sodium Chloride (Saline Flush) 2.5 ml FLUSH ASDIRECTED PRN PRN Reason: Keep Vein Open Discontinued Medications Cefazolin Sodium (Ancef) Confirm Administered Dose 2 gm .ROUTE .STK-MED ONE Stop: 01/10/17 11:03 Diphenhydramine HCl (Benadryl) 25 mg IVPUSH ONETIME ONE Stop: 01/11/17 03:30 Last Admin: 01/11/17 03:48 Dose: 25 mg Ephedrine Sulfate (Ephedrine Sulfate) Confirm Administered Dose 50 mg .ROUTE .STK-MED ONE Stop: 01/10/17 11:09 Fentanyl (Sublimaze) Confirm Administered Dose 250 mcg .ROUTE .STK-MED ONE Stop: 01/10/17 07:11 Gentamicin Sulfate (Gentamicin) Confirm Administered Dose 80 mg .ROUTE .STK-MED ONE Stop: 01/10/17 07:42 Glycopyrrolate () Confirm Administered Dose 1 mg .ROUTE .STK-MED ONE Stop: 01/10/17 07:11 Hydromorphone HCl (Dilaudid) Confirm Administered Dose 2 mg .ROUTE .STK-MED ONE Stop: 01/10/17 13:08 Cefazolin Sodium/Dextrose 1 gm (/ Premix) 50 mls @ 100 mls/hr IV ONCALL ONE Stop: 01/10/17 07:29 Last Admin: 01/10/17 15:31 Dose: Not Given Lactated Ringer's (Ringers, Lactated) 1,000 mls @ 125 mls/hr IV ASDIRECTED [facility] Last Admin: 01/11/17 08:39 Dose: 125 mls/hr Sodium Chloride (Normal Saline) Confirm Administered Dose 20 mls @ as directed .ROUTE .STK-MED ONE Stop: 01/10/17 07:11 Sodium Chloride (Normal Saline) Confirm Administered Dose 20 mls @ as directed .ROUTE .STK-MED ONE Stop: 01/10/17 11:03 Albumin Human (Buminate 5%) 250 mls @ 50 mls/hr IV ASDIRECTED [facility] Stop: 01/11/17 00:46 Last Admin: 01/10/17 15:31 Dose: 50 mls/hr Cefazolin Sodium/Dextrose 1 gm (/ Premix) 50 mls @ 100 mls/hr IV Q8H [facility] Last Admin: 01/11/17 03:28 Dose: Not Given Albumin Human (Buminate 5%) 250 mls @ 50 mls/hr IV ONETIME ONE Stop: 01/11/17 01:59 Last Admin: 01/10/17 20:20 Dose: 50 mls/hr Lidocaine (Xylocaine-Mpf 2%) Confirm Administered Dose 5 ml .ROUTE .STK-MED ONE Stop: 01/10/17 07:11 Midazolam HCl (Versed 1 Mg/Ml) Confirm Administered Dose 2 mg .ROUTE .STK-MED ONE Stop: 01/10/17 07:11 Morphine Sulfate (Duramorph Pf) Confirm Administered Dose 10 mg .ROUTE .STK-MED ONE Stop: 01/10/17 09:24 Morphine Sulfate (Morphine Smash Fixer 30 Mg In 30 Ml) 30 mg IV ASDIRECTED [facility] PRN Reason: Protocol Last Admin: 01/10/17 18:45 Dose: 30 mg Neostigmine Methylsulfate (Neostigmine) Confirm Administered Dose 5 mg .ROUTE .STK-MED ONE Stop: 01/10/17 07:11 Ondansetron HCl (Zofran) Confirm Administered Dose 4 mg .ROUTE .STK-MED ONE Stop: 01/10/17 07:11 Phenylephrine HCl ([place]-Synephrine) Confirm Administered Dose 10 mg .ROUTE .STK- MED ONE Stop: 01/10/17 11:24 Phenylephrine HCl ([place]-Synephrine) Confirm Administered Dose 10 mg .ROUTE .STK- MED ONE Stop: 01/10/17 12:16 Phenylephrine HCl ([place]-Synephrine) Confirm Administered Dose 10 mg .ROUTE .STK- MED ONE Stop: 01/10/17 13:37 Propofol (Diprivan 20 Ml) Confirm Administered Dose 200 mg .ROUTE .STK-MED ONE Stop: 01/10/17 07:11 Vecuronium [place] (Vecuronium) Confirm Administered Dose 10 mg .ROUTE .STK-MED ONE Stop: 01/10/17 07:11 - Exam Wound/Incisions: Healing Well Quality Assessment: DVT Prophylaxis General: Alert, Oriented, Cooperative, No Acute Distress HEENT: Pupils Equal Neck: Supple Lungs: Clear to Auscultation Cardiovascular: Regular Rate GI/Abdominal Exam: Normal Bowel Sounds Extremities: Normal Inspection Skin: Warm, Dry, Intact Neurological: No New Focal Deficit Psy/Mental Status: Alert, Normal Affect (doing well,had itching morphine d/cd problem resolved) - Problem List & Annotations (1) Prostate CA SNOMED Code(s): 511963963 Code(s): C61 - MALIGNANT NEOPLASM OF PROSTATE Status: Acute - Problem List Review Problem List Initiated/Reviewed/Updated: Yes - My Orders Last 24 Hours: Active Orders 24 hr Category Date Time Status Bradycardia-Neuroaxis [employer] [RC] ROUTINE Care 01/11/17 07:55 Active Hypertension-Neuroaxis [place] [RC] ROUTINE Care 01/11/17 07:55 Active Hypotension-Neuroaxis [employer] [RC] ROUTINE Care 01/11/17 07:55 Active Intake and Output [RC] Q12H Care 01/10/17 14:39 Active Oxygen Therapy Adult [Oxygen Therapy] [RC] ASDIRECTED Care 01/11/17 07:16 Active Oxygen Therapy [RC] PER UNIT ROUTINE Care 01/11/17 07:55 Active RT Incentive Spirometry [RC] ASDIRECTED Care 01/11/17 08:06 Active Vital Signs [RC] Q1H Care 01/11/17 07:55 Active Clear Liquid Diet [DIET] Diet 01/10/17 Dinner Active BASIC METABOLIC PANEL,BMP [CHEM] Routine Lab 01/12/17 06:00 Ordered CBC WITH AUTO DIFF [HEME] Routine Lab 01/12/17 06:00 Ordered Acetaminophen/HYDROcodone [[place] 325-5 MG] Med 01/11/17 06:41 Active 1 tab PO Q4H PRN Ciprofloxacin in D5W [Cipro in D5W 400 MG/200 ML] 400 Med 01/11/17 04:00 Active mg Premix Bag 1 bag IV Q12H Enoxaparin [Lovenox] Med 01/11/17 09:00 Active 40 mg SUBCUT DAILY Lactated Ringers [Ringers, Lactated] 1,000 ml Med 01/11/17 09:47 Active IV ASDIRECTED Levothyroxine [Synthroid] Med 01/11/17 17:00 Active 50 mcg IVPUSH DAILY Meperidine [Demerol] Med 01/11/17 04:11 Active 25 mg IVPUSH Q3H PRN Nalbuphine [Nubain] Med 01/11/17 07:54 Active 5 mg IVPUSH Q3H PRN Naloxone [Narcan] Med 01/11/17 07:54 Active 0.1 mg IVPUSH ONETIME PRN Ondansetron [Zofran] Med 01/10/17 18:35 Active 4 mg IVPUSH Q3H PRN diphenhydrAMINE [Benadryl] Med 01/11/17 07:51 Active 25 mg IVPUSH Q4H PRN diphenhydrAMINE [Benadryl] Med 01/11/17 07:54 Active 25 mg IVPUSH Q4H PRN AN Neuroaxis Duramorph Precaution Reflex [OM.PC] PER Oth 01/11/17 08:00 Ordered UNIT ROUTINE Nothing Per Rectum [WOMSER] Routine Oth 01/10/17 14:39 Ordered Transfuse Red Blood Cells [COMM] Stat Oth 01/10/17 13:30 Ordered Medication Orders Hydrocodone Bitart/Acetaminophen ([place] 325-5 Mg) 1 tab PO Q4H PRN PRN Reason: Pain Last Admin: 01/11/17 07:21 Dose: 1 tab Diphenhydramine HCl (Benadryl) 25 mg IVPUSH Q4H PRN PRN Reason: Itching Diphenhydramine HCl (Benadryl) 25 mg IVPUSH Q4H PRN PRN Reason: Itching Stop: 01/12/17 07:55 Enoxaparin Sodium (Lovenox) 40 mg SUBCUT DAILY [facility] Last Admin: 01/11/17 08:39 Dose: 40 mg Ciprofloxacin/Dextrose 400 mg/ (Premix) 200 mls @ 200 mls/hr IV Q12H [facility] Last Admin: 01/11/17 03:53 Dose: 200 mls/hr Lactated Ringer's (Ringers, Lactated) 1,000 mls @ 150 mls/hr IV ASDIRECTED [facility] Levothyroxine Sodium (Synthroid) 50 mcg IVPUSH DAILY [facility] Meperidine HCl (Demerol) 25 mg IVPUSH Q3H PRN PRN Reason: Pain Last Admin: 01/11/17 05:01 Dose: 25 mg Nalbuphine HCl (Nubain) 5 mg IVPUSH Q3H PRN PRN Reason: Pruritis Stop: 01/12/17 07:55 Naloxone HCl (Narcan) 0.1 mg IVPUSH ONETIME PRN PRN Reason: Respiratory Depression Stop: 01/12/17 07:55 Ondansetron HCl (Zofran) 4 mg IVPUSH Q3H PRN PRN Reason: Nausea/Vomiting Last Admin: 01/11/17 08:30 Dose: 4 mg Admin: 01/11/17 05:11 Dose: 4 mg Admin: 01/10/17 18:44 Dose: 4 mg Sodium Chloride (Saline Flush) 10 ml FLUSH ASDIRECTED PRN PRN Reason: Keep Vein Open Sodium Chloride (Saline Flush) 2.5 ml FLUSH ASDIRECTED PRN PRN Reason: Keep Vein Open
[2017-01-11] MEDS ORDERED: Levothyroxine 100 MCG Vial IVPUSH SCH (17:00)
[2017-01-11] MEDS ORDERED: Promethazine 25 MG Tab PO PRN (19:14)
[2017-01-11] MEDS ORDERED: HYDROmorphone 2 MG Tab PO PRN (19:27)
[2017-01-11] MEDS: Levothyroxine 100 MCG Tab PO SCH (20:02)
[2017-01-11] MEDS ORDERED: HYDROmorphone 2 MG Tab PO STA (22:26)
[2017-01-12] MEDS: HYDROmorphone 2 MG Tab PO PRN ×6 (01:47→21:24)
[2017-01-12] MEDS ORDERED: dimenhyDRINATE 50 MG Tab PO PRN (03:00)
[2017-01-12] MEDS: Ciprofloxacin in D5W 400 MG in Premix Bag 1 BAG IV SCH ×2 (04:18)
[2017-01-12] MEDS: Lactated Ringers 1,000 ML IV SCH ×3 (06:20→20:43)
[2017-01-12 06:31] LABS: CHLORIDE,CL 107 mmol/L (98-110); SODIUM,NA 138 mmol/L (136-146)
--- NOTE | 2017-01-12 08:00 | PCM.SURGPN ---
- General Info Date of Service: 01/12/17 Date of Surgery/Procedure: 01/10/17 POD#: 2 Post-Op Diagnosis: Radical Prostatectomy for Prostate Cancer Functional Status: Reports: Urinating (via kennedy), Other (Continues to work on pain control). Denies: Ambulating - Review of Systems General: Denies: Fever, Chills Pulmonary: Reports: Other (chest discomfort on deep inspiration). Denies: Shortness of Breath Cardiovascular: Denies: Chest Pain, Palpitations Gastrointestinal: Reports: Nausea, Other (Feels abdominal pressure). Denies: Flatus Genitourinary: Denies: Dysuria (Kennedy in place) Neurological: Denies: Confusion, Change in Speech Psychiatric: Reports: No Symptoms. Denies: Confusion, Depression - Patient Data Vitals - Most Recent: Last Vital Signs Temp 36.9 C 01/12/17 04:00 Pulse 81 01/11/17 11:00 Resp 20 01/12/17 07:00 BP 119/73 01/12/17 07:00 Pulse Ox 94 L 01/12/17 07:00 Weight - Most Recent: 86.5 kg I&O - Last 24 Hours: Intake & Output 01/11/17 01/12/17 01/12/17 22:59 06:59 14:59 Intake Total 3862 1600 Output Total 1600 2050 Balance 2262 -450 Lab Results Last 24 Hrs: Laboratory Results - last 24 hr 01/12/17 01/12/17 Range/Units 06:06 06:06 WBC 12.73 H (4.0-11.0) K/uL RBC 3.59 L (4.50-5.90) M/uL Hgb 10.5 L (13.0-17.0) g/dL Hct 31.6 L (38.0-50.0) % MCV 88.0 (80.0-98.0) fL MCH 29.2 (27.0-32.0) pg MCHC 33.2 (31.0-37.0) g/dL RDW Std Deviation 46.1 (28.0-62.0) fl RDW Coeff of Cecilio 14 (11.0-15.0) % Plt Count 189 (150-400) K/uL MPV 9.90 (7.40-12.00) fL Neut % (Auto) 82.7 H (48.0-80.0) % Lymph % (Auto) 6.9 L (16.0-40.0) % Nolan % (Auto) 10.0 (0.0-15.0) % Eos % (Auto) 0.2 (0.0-7.0) % Baso % (Auto) 0.2 (0.0-1.5) % Neut # (Auto) 10.5 H (1.4-5.7) K/uL Lymph # (Auto) 0.9 (0.6-2.4) K/uL Nolan # (Auto) 1.3 H (0.0-0.8) K/uL Eos # (Auto) 0.0 (0.0-0.7) K/uL Baso # (Auto) 0.0 (0.0-0.1) K/uL Nucleated RBC % 0.0 /100WBC Nucleated RBCs # 0 K/uL Sodium 138 (136-146) mmol/L Potassium 3.9 (3.5-5.1) mmol/L Chloride 107 (98-110) mmol/L Carbon Dioxide 25 (21-31) mmol/L BUN 7 (6.0-23.0) mg/dL Creatinine 0.8 (0.6-1.5) mg/dL Est Cr Clr Drug Dosing TNP Estimated GFR (MDRD) > 60.0 ml/min Glucose 121 H (60-110) mg/dL Calcium 7.9 L (8.8-10.8) mg/dL Med Orders - Current: Current Medications Dimenhydrinate (Driminate) 50 mg PO Q4H PRN PRN Reason: Nausea Diphenhydramine HCl (Benadryl) 25 mg IVPUSH Q4H PRN PRN Reason: Itching Stop: 01/12/17 07:55 Enoxaparin Sodium (Lovenox) 40 mg SUBCUT DAILY [facility] Last Admin: 01/11/17 08:39 Dose: 40 mg Hydromorphone HCl (Dilaudid) 2 mg PO Q3H PRN PRN Reason: Pain Last Admin: 01/12/17 07:45 Dose: 2 mg Ciprofloxacin/Dextrose 400 mg/ (Premix) 200 mls @ 200 mls/hr IV Q12H [facility] Last Admin: 01/12/17 04:18 Dose: 200 mls/hr Lactated Ringer's (Ringers, Lactated) 1,000 mls @ 150 mls/hr IV ASDIRECTED BLAKE Last Admin: 01/12/17 06:20 Dose: 150 mls/hr Levothyroxine Sodium (Synthroid) 100 mcg PO BEDTIME [facility] Last Admin: 01/11/17 20:02 Dose: 100 mcg Nalbuphine HCl (Nubain) 5 mg IVPUSH Q3H PRN PRN Reason: Pruritis Stop: 01/12/17 07:55 Naloxone HCl (Narcan) 0.1 mg IVPUSH ONETIME PRN PRN Reason: Respiratory Depression Stop: 01/12/17 07:55 Ondansetron HCl (Zofran) 4 mg IVPUSH Q3H PRN PRN Reason: Nausea/Vomiting Last Admin: 01/11/17 16:47 Dose: 4 mg Promethazine HCl (Phenergan) 25 mg PO Q4H PRN PRN Reason: Nausea/Vomiting Sodium Chloride (Saline Flush) 10 ml FLUSH ASDIRECTED PRN PRN Reason: Keep Vein Open Sodium Chloride (Saline Flush) 2.5 ml FLUSH ASDIRECTED PRN PRN Reason: Keep Vein Open Discontinued Medications Hydrocodone Bitart/Acetaminophen ([place] 325-5 Mg) 1 tab PO Q4H PRN PRN Reason: Pain Last Admin: 01/11/17 15:34 Dose: 1 tab Cefazolin Sodium (Ancef) Confirm Administered Dose 2 gm .ROUTE .STK-MED ONE Stop: 01/10/17 11:03 Diphenhydramine HCl (Benadryl) 25 mg IVPUSH ONETIME ONE Stop: 01/11/17 03:30 Last Admin: 01/11/17 03:48 Dose: 25 mg Diphenhydramine HCl (Benadryl) 25 mg IVPUSH Q4H PRN PRN Reason: Itching Ephedrine Sulfate (Ephedrine Sulfate) Confirm Administered Dose 50 mg .ROUTE .STK-MED ONE Stop: 01/10/17 11:09 Fentanyl (Sublimaze) Confirm Administered Dose 250 mcg .ROUTE .STK-MED ONE Stop: 01/10/17 07:11 Gentamicin Sulfate (Gentamicin) Confirm Administered Dose 80 mg .ROUTE .STK-MED ONE Stop: 01/10/17 07:42 Glycopyrrolate () Confirm Administered Dose 1 mg .ROUTE .STK-MED ONE Stop: 01/10/17 07:11 Hydromorphone HCl (Dilaudid) Confirm Administered Dose 2 mg .ROUTE .STK-MED ONE Stop: 01/10/17 13:08 Hydromorphone HCl (Dilaudid) 2 mg PO Q4H PRN PRN Reason: Pain Last Admin: 01/11/17 19:51 Dose: 2 mg Hydromorphone HCl (Dilaudid) 2 mg PO NOW STA Stop: 01/11/17 22:27 Last Admin: 01/11/17 22:45 Dose: 2 mg Cefazolin Sodium/Dextrose 1 gm (/ Premix) 50 mls @ 100 mls/hr IV ONCALL ONE Stop: 01/10/17 07:29 Last Admin: 01/10/17 15:31 Dose: Not Given Lactated Ringer's (Ringers, Lactated) 1,000 mls @ 125 mls/hr IV ASDIRECTED [facility] Last Infusion: 01/11/17 09:37 Dose: 150 mls/hr Sodium Chloride (Normal Saline) Confirm Administered Dose 20 mls @ as directed .ROUTE .STK-MED ONE Stop: 01/10/17 07:11 Sodium Chloride (Normal Saline) Confirm Administered Dose 20 mls @ as directed .ROUTE .STK-MED ONE Stop: 01/10/17 11:03 Albumin Human (Buminate 5%) 250 mls @ 50 mls/hr IV ASDIRECTED BLAKE Stop: 01/11/17 00:46 Last Admin: 01/10/17 15:31 Dose: 50 mls/hr Cefazolin Sodium/Dextrose 1 gm (/ Premix) 50 mls @ 100 mls/hr IV Q8H [facility] Last Admin: 01/11/17 03:28 Dose: Not Given Albumin Human (Buminate 5%) 250 mls @ 50 mls/hr IV ONETIME ONE Stop: 01/11/17 01:59 Last Admin: 01/10/17 20:20 Dose: 50 mls/hr Levothyroxine Sodium (Synthroid) 50 mcg IVPUSH DAILY BLAKE Lidocaine (Xylocaine-Mpf 2%) Confirm Administered Dose 5 ml .ROUTE .STK-MED ONE Stop: 01/10/17 07:11 Meperidine HCl (Demerol) 25 mg IVPUSH Q3H PRN PRN Reason: Pain Last Admin: 01/11/17 17:03 Dose: 25 mg Midazolam HCl (Versed 1 Mg/Ml) Confirm Administered Dose 2 mg .ROUTE .STK-MED ONE Stop: 01/10/17 07:11 Morphine Sulfate (Duramorph Pf) Confirm Administered Dose 10 mg .ROUTE .STK-MED ONE Stop: 01/10/17 09:24 Morphine Sulfate (Morphine Fuse Cutter 30 Mg In 30 Ml) 30 mg IV ASDIRECTED [facility] PRN Reason: Protocol Last Admin: 01/10/17 18:45 Dose: 30 mg Neostigmine Methylsulfate (Neostigmine) Confirm Administered Dose 5 mg .ROUTE .STK-MED ONE Stop: 01/10/17 07:11 Ondansetron HCl (Zofran) Confirm Administered Dose 4 mg .ROUTE .STK-MED ONE Stop: 01/10/17 07:11 Phenylephrine HCl ([place]-Synephrine) Confirm Administered Dose 10 mg .ROUTE .STK- MED ONE Stop: 01/10/17 11:24 Phenylephrine HCl ([place]-Synephrine) Confirm Administered Dose 10 mg .ROUTE .STK- MED ONE Stop: 01/10/17 12:16 Phenylephrine HCl ([place]-Synephrine) Confirm Administered Dose 10 mg .ROUTE .STK- MED ONE Stop: 01/10/17 13:37 Propofol (Diprivan 20 Ml) Confirm Administered Dose 200 mg .ROUTE .STK-MED ONE Stop: 01/10/17 07:11 Vecuronium [place] (Vecuronium) Confirm Administered Dose 10 mg .ROUTE .STK-MED ONE Stop: 01/10/17 07:11 - Exam Wound/Incisions: Other (Serous drainage from [place] x2, incisions Clean and appropriate) Quality Assessment: Supplemental Oxygen, Urine Catheter, DVT Prophylaxis General: Alert, Oriented, Cooperative, No Acute Distress HEENT: Pupils Equal, EOMI Neck: Supple, Trachea Midline Lungs: Decreased Breath Sounds Cardiovascular: Regular Rate, Regular Rhythm GI/Abdominal Exam: Soft, No Distention, Tender (Appriately) Extremities: Normal Inspection, Normal Range of Motion, Non-Tender, No Pedal Edema Skin: Warm, Dry Neurological: No New Focal Deficit Psy/Mental Status: Alert, Normal Affect, Normal Mood - Problem List Review Problem List Initiated/Reviewed/Updated: Yes - My Orders Last 24 Hours: Active Orders 24 hr Category Date Time Status Bradycardia-Neuroaxis [employer] [RC] ROUTINE Care 01/11/17 07:55 Active Communication Order [RC] ROUTINE Care 01/11/17 20:00 Active Hypertension-Neuroaxis [place] [RC] ROUTINE Care 01/11/17 07:55 Active Hypotension-Neuroaxis [employer] [RC] ROUTINE Care 01/11/17 07:55 Active Oxygen Therapy Adult [Oxygen Therapy] [RC] ASDIRECTED Care 01/11/17 07:16 Active Oxygen Therapy [RC] PER UNIT ROUTINE Care 01/11/17 07:55 Active RT Incentive Spirometry [RC] ASDIRECTED Care 01/11/17 08:06 Active Vital Signs [RC] Q1H Care 01/11/17 07:55 Active Enoxaparin [Lovenox] Med 01/11/17 09:00 Active 40 mg SUBCUT DAILY HYDROmorphone [Dilaudid] Med 01/12/17 01:30 Active 2 mg PO Q3H PRN Lactated Ringers [Ringers, Lactated] 1,000 ml Med 01/11/17 09:47 Active IV ASDIRECTED Levothyroxine [Synthroid] Med 01/11/17 21:00 Active 100 mcg PO BEDTIME Nalbuphine [Nubain] Med 01/11/17 07:54 Active 5 mg IVPUSH Q3H PRN Naloxone [Narcan] Med 01/11/17 07:54 Active 0.1 mg IVPUSH ONETIME PRN Promethazine [Phenergan] Med 01/11/17 19:14 Active 25 mg PO Q4H PRN dimenhyDRINATE [Driminate] Med 01/12/17 03:00 Active 50 mg PO Q4H PRN diphenhydrAMINE [Benadryl] Med 01/11/17 07:54 Active 25 mg IVPUSH Q4H PRN AN Neuroaxis Duramorph Precaution Reflex [OM.PC] PER Oth 01/11/17 08:00 Ordered UNIT ROUTINE Medication Orders Dimenhydrinate (Driminate) 50 mg PO Q4H PRN PRN Reason: Nausea Diphenhydramine HCl (Benadryl) 25 mg IVPUSH Q4H PRN PRN Reason: Itching Stop: 01/12/17 07:55 Enoxaparin Sodium (Lovenox) 40 mg SUBCUT DAILY [facility] Last Admin: 01/11/17 08:39 Dose: 40 mg Hydromorphone HCl (Dilaudid) 2 mg PO Q3H PRN PRN Reason: Pain Last Admin: 01/12/17 07:45 Dose: 2 mg Admin: 01/12/17 04:56 Dose: 2 mg Admin: 01/12/17 01:47 Dose: 2 mg Ciprofloxacin/Dextrose 400 mg/ (Premix) 200 mls @ 200 mls/hr IV Q12H [facility] Last Admin: 01/12/17 04:18 Dose: 200 mls/hr Infusion: 01/11/17 16:32 Dose: 200 mls/hr Admin: 01/11/17 15:32 Dose: 200 mls/hr Infusion: 01/11/17 04:53 Dose: 200 mls/hr Admin: 01/11/17 03:53 Dose: 200 mls/hr Lactated Ringer's (Ringers, Lactated) 1,000 mls @ 150 mls/hr IV ASDIRECTED [facility] Last Admin: 01/12/17 06:20 Dose: 150 mls/hr Infusion: 01/12/17 05:31 Dose: 150 mls/hr Admin: 01/11/17 22:50 Dose: 150 mls/hr Infusion: 01/11/17 22:11 Dose: 150 mls/hr Admin: 01/11/17 15:30 Dose: 150 mls/hr Levothyroxine Sodium (Synthroid) 100 mcg PO BEDTIME [facility] Last Admin: 01/11/17 20:02 Dose: 100 mcg Nalbuphine HCl (Nubain) 5 mg IVPUSH Q3H PRN PRN Reason: Pruritis Stop: 01/12/17 07:55 Naloxone HCl (Narcan) 0.1 mg IVPUSH ONETIME PRN PRN Reason: Respiratory Depression Stop: 01/12/17 07:55 Ondansetron HCl (Zofran) 4 mg IVPUSH Q3H PRN PRN Reason: Nausea/Vomiting Last Admin: 01/11/17 16:47 Dose: 4 mg Admin: 01/11/17 08:30 Dose: 4 mg Admin: 01/11/17 05:11 Dose: 4 mg Admin: 01/10/17 18:44 Dose: 4 mg Promethazine HCl (Phenergan) 25 mg PO Q4H PRN PRN Reason: Nausea/Vomiting Sodium Chloride (Saline Flush) 10 ml FLUSH ASDIRECTED PRN PRN Reason: Keep Vein Open Sodium Chloride (Saline Flush) 2.5 ml FLUSH ASDIRECTED PRN PRN Reason: Keep Vein Open - Assessment Assessment (Free Text/Narrative):: MR. Jauregui is POD 2 radical prostatectomy, continues to have nausea, require 1 L supplemental O2, abdominal pressure, a "strange feeling" when he takes deep breaths, tolerating only a small diet, voiding appropriately per Kennedy. His blood pressure has improved, remains afebrile, WBC stable at 12 on antibiotic regimen, hemoglobin stabilized, draining serous fluid from drain sites. Overall his condition is improved since yesterday, continues to have difficulty mobilizing and with diet. - Plan Plan (Free Text/Narrative):: Continue current orders with the addition of increased mobilization. Have bed to 80 degrees, sit at side of bed, up to chair to encourage return of GI function. Continue to encourage IS use, goal of 1500 cc and wean supplemental oxygen.
[2017-01-12] MEDS: Enoxaparin 40 MG/0.4 ML Syringe SUBCUT SCH (08:21)
[2017-01-12] MEDS: Ondansetron 4 MG/2 ML SDV IVPUSH PRN (08:30)
[2017-01-12] MEDS ORDERED: DIMENHYDRINATE 50 MG PO PRN (08:56)
[2017-01-12] MEDS ORDERED: Bisacodyl 10 MG Supp RECTAL ONE (09:16)
[2017-01-12] MEDS: Levothyroxine 100 MCG Tab PO SCH (21:23)
[2017-01-13] MEDS: HYDROmorphone 2 MG Tab PO PRN ×3 (03:31→11:16)
[2017-01-13] MEDS: Lactated Ringers 1,000 ML IV SCH ×2 (03:31→09:49)
[2017-01-13] MEDS: Enoxaparin 40 MG/0.4 ML Syringe SUBCUT SCH (09:19)
[2017-01-13 11:26] VITALS: BP 117/68
--- NOTE | 2017-01-14 07:12 | DISCH ---
DATE OF DISCHARGE: 01/13/2017 PRIMARY CARE PHYSICIAN: Darin Parker M.D A 66-year-old who was admitted to the hospital and had radical retropubic prostatectomy for localized prostate cancer. This is his 3rd postop day, he has done well while here. His lab work remained normal. He is sent home today, the 3rd postop day. He is eating well. He has good bowel sounds. He had a bowel movement. His lungs are clear. He is afebrile and he is feeling reasonably well. He is discharged on Keflex for the next 3 days and Dilaudid 2 mg p.o. q.6 hours p.r.n. for pain. He comes back to see me this coming Monday, 4 days from today, to have the drains removed and the chavez removed. ROXANA AUGUSTIN /[id number]
== END 2017-01-13 13:45 | disposition home or self-care (01) | DRG 480 ==
LOC: MW.ICU 08:20 → MW.MS 01-12 18:11
PROVIDERS: ADMIT Urology; ATTEND Urology
PROC: 0VT00ZZ Resection of Prostate, Open Approach (ICD-10-PCS; principal; 2017-01-10)
DX: C61 Malignant neoplasm of prostate (principal)
CPT/HCPCS: 00865; 36415; 36430; 80048; 85025; 86850; 86900; 86901; 86920; 86921; 86922; 88305; 88307; 88309; 88331; A9270-GY; J0690; J0744; J1170; J1200; J1580; J1650; J2175; J2250; J2270; J2274; J2370; J2405; J2704; J3010; J7120; P9016

== ENCOUNTER 2019-09-06 06:58 | Emergency (ER) | payer MEDICARE, BC ==
--- NOTE | 2019-09-06 07:23 | EDM.PDOC ---
ED HPI GENERAL MEDICAL PROBLEM - General Chief Complaint: Skin Complaint Stated Complaint: ITCH Time Seen by Provider: 09/06/19 07:13 Source of Information: Reports: Patient History Limitations: Reports: No Limitations - History of Present Illness INITIAL COMMENTS - FREE TEXT/NARRATIVE: 61-year-old male presents with diffuse pruritus after getting up from sleep this morning. He took 1 tab of benadryl with no relief. Denies F/C/N/V/D/CP/SOB/Abd pain/RUIZ. ROS: A 10-point review of systems, other than pertinent positives and negatives as stated per HPI, is otherwise negative Past medical history: No additional pertinent history Past Surgical history: No additional pertinent history Social history: No additional pertinent history Family history: No additional pertinent history PHYSICAL EXAM General: AOx4, GCS = 15, No distress HEENT: dry mucous membrane Neck: supple, no meningismus, no Kernig or Brudzinski Cardiac: S1S2 RRR Respiratory: CTAB, no crackles or rales, no wheezing Abdomen: Soft, nontender, no rebound or guarding, nondistended, no pulsatile mass. Back: nontender Skin: Scratch adamson on left arm, no rash. Musculoskeletal: NVI distally, no deformity Neuro: No focal deficits, CN 2 - 12 WNL. Onset: Today - Related Data Allergies Allergy/AdvReac Type Severity Reaction Status Date / Time mold Allergy "makes me Uncoded 11/02/16 08:52 sick" Home Meds: Home Meds LORazepam 0.5 mg PO BID PRN 11/02/16 [History] Levothyroxine Sodium [Synthroid] 100 mcg PO BEDTIME 11/02/16 [History] Lysine HCl [l-Lysine] 1 tab PO ASDIRECTED 11/02/16 [History] Multivit-Min/FA/Lycopen/Lutein [Centrum Silver Tablet] 1 tab PO DAILY 11/02/16 [History] Naproxen Sodium [Aleve] 2 - 3 tab PO ASDIRECTED PRN 11/02/16 [History] predniSONE [Prednisone] 50 mg PO DAILY #5 tablet 09/06/19 [Rx] Past Medical History Cardiovascular History: Reports: None Gastrointestinal History: Reports: GERD Other Gastrointestinal History: hx gastric ulcer Genitourinary History: Reports: BPH Musculoskeletal History: Reports: Back Pain, Chronic, Osteoarthritis Psychiatric History: Reports: Anxiety Endocrine/Metabolic History: Reports: Hypothyroidism Hematologic History: Reports: Blood Transfusion(s) Other Hematologic History: was told he had a transfusion at 2 yr of age - Past Surgical History Head Surgeries/Procedures: Reports: None GI Surgical History: Reports: Colonoscopy ED ROS GENERAL - Review of Systems Review Of Systems: Comprehensive ROS is negative, except as noted in HPI. ED EXAM, SKIN/RASH Exam: See Below (see dictation) Course - Re-Assessments/Exams Free Text/Narrative Re-Assessment/Exam: 09/06/19 07:23 He is stable for discharge. I advised the patient to return to the ER for reevaluation if symptoms worsened, and to follow up with their PCP within 2-3 days. Departure - Departure Time of Disposition: 07:24 Disposition: Home, Self-Care 01 Condition: Good Clinical Impression: Pruritus - Discharge Information *PRESCRIPTION DRUG MONITORING PROGRAM REVIEWED*: Not Applicable *COPY OF PRESCRIPTION DRUG MONITORING REPORT IN PATIENT NATHAN: Not Applicable Prescriptions: predniSONE [Prednisone] 50 mg PO DAILY #5 tablet Instructions: Pruritus Referrals: Wilfredo Manning MD [Primary Care Provider] - 1 Week Additional Instructions: The following information is given to patients seen in the emergency department who are being discharged to home. This information is to outline your options for follow-up care. We provide all patients seen in our emergency department with a follow-up referral. The need for follow-up, as well as the timing and circumstances, are variable depending upon the specifics of your emergency department visit. If you don't have a primary care physician on staff, we will provide you with a referral. We always advise you to contact your personal physician following an emergency department visit to inform them of the circumstance of the visit and for follow-up with them and/or the need for any referrals to a consulting specialist. The emergency department will also refer you to a specialist when appropriate. This referral assures that you have the opportunity for follow-up care with a specialist. All of these measure are taken in an effort to provide you with optimal care, which includes your follow-up. Under all circumstances we always encourage you to contact your private physician who remains a resource for coordinating your care. When calling for fo llow-up care, please make the office aware that this follow-up is from your recent emergency room visit. If for any reason you are refused follow-up, please contact the [facility] Emergency Department at and asked to speak to the emergency department charge nurse. If you do not have a primary care doctor, please follow up with the clinics below within 3-5 days. [facility] [address] [place] [id number] [facility] [address] [place] [id number]
[2019-09-06 07:39] VITALS: BP 132/90; PULSE 75
== END 2019-09-06 07:35 | disposition home or self-care (01) ==
LOC: MW.ED 06:58
DX: L29.9 Pruritus, unspecified (principal); F41.9 Anxiety disorder, unspecified; E03.9 Hypothyroidism, unspecified; Z79.899 Other long term (current) drug therapy; Z91.048 Other nonmedicinal substance allergy status
CPT/HCPCS: 99282

== ENCOUNTER 2022-06-17 08:49 | Day surgery (SDC) | payer MEDICARE, BC ==
[~2022-06-17 08:49] MED LIST changes: -Gentamicin 40 MG/ML 2 ML Vial ONE; +Lactated Ringers 1,000 ML IV SCH; -Lidocaine 2% 5 ML SDV ONE; -Midazolam 1 MG/ML 2 ML SDV ONE; -Neostigmine Methylsulfate 1 MG/ML 5 ML Syringe ONE; -Ondansetron 4 MG/2 ML SDV ONE; -Propofol 200 MG/20 ML SDV ONE; -Sodium Chloride 0.9% 10 ML Syringe FLUSH PRN; -Sodium Chloride 0.9% 2.5 ML Syringe FLUSH PRN; -Sodium Chloride 0.9% 20 ML ONE; -ceFAZolin 1 GM in Premix Bag 1 BAG IV ONE; -fentaNYL 250 MCG/5 ML SDV ONE
[2022-06-17] MEDS ORDERED: Lidocaine 2% 5 ML SDV ONE (10:15)
[2022-06-17] MEDS ORDERED: Propofol 200 MG/20 ML SDV ONE (10:15)
[2022-06-17] MEDS ORDERED: Lactated Ringers 1,000 ML IV SCH (10:45)
[2022-06-17 10:57] VITALS: BP 119/61; PULSE 70
== END 2022-06-17 11:05 | disposition home or self-care (01) ==
LOC: MW.SDS 08:49
PROVIDERS: ATTEND Surgery
DX: K29.50 Unspecified chronic gastritis without bleeding (principal); K31.7 Polyp of stomach and duodenum; F41.9 Anxiety disorder, unspecified; K21.9 Gastro-esophageal reflux disease without esophagitis; E03.9 Hypothyroidism, unspecified; M19.90 Unspecified osteoarthritis, unspecified site; M54.2 Cervicalgia; G89.29 Other chronic pain; M79.2 Neuralgia and neuritis, unspecified; Z87.19 Personal history of other diseases of the digestive system; Z98.890 Other specified postprocedural states; Z88.8 Allergy status to other drugs, medicaments and biological substances; Z79.899 Other long term (current) drug therapy; Z79.890 Hormone replacement therapy; Z87.891 Personal history of nicotine dependence
CPT/HCPCS: 43239; J2704; J7120; 00731; 88305; J3490